=== PATIENT | male | born 1980 | race Caucasian/White ===

== ENCOUNTER → 2019-07-29 | Outpatient (REF) | payer OTHER | LOC: M LAB REF 17:12 | PROVIDERS: ATTEND Dermatology | DX: D22.5 Melanocytic nevi of trunk (principal) | CPT/HCPCS: 11102; 88305; G0463 ==

== ENCOUNTER → 2019-08-11 | Outpatient (CLI) | payer OTHER ==
--- NOTE | 2019-08-11 09:46 | REPVR ---
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 lymphoma TECHNIQUE: Imaging protocol: Multiplanar magnetic resonance images of the thoracic spine without and with intravenous contrast. Contrast material: PROHANCE; Contrast volume: 19 ml; Contrast route: IV; COMPARISON: No relevant prior studies available. FINDINGS: Vertebrae: There are no regions of abnormal enhancement. Spinal cord: There is minimal central and left subarticular herniation at T11-T12 with subtle deformity of adjacent anterior left cord surface on axial image 1:6. Discs/Spinal canal/Neural foramina: No significant disc disease. No significant spinal canal stenosis. Soft tissues: Posterior skin markers are seen at the T6 level. No soft tissue mass is identified. IMPRESSION: 1. Posterior skin markers are seen at the T6 level. No soft tissue mass is identified. 2. There are no regions of abnormal enhancement. 3. There is minimal central and left subarticular herniation at T11-T12 with subtle deformity of adjacent anterior left cord surface on axial image 1:6. Electronically signed by: Tomy Lizama On 08/11/2019 09:45:49 AM
== END ==
LOC: M PLARAD 07:03
PROVIDERS: ATTEND Dermatology
DX: D48.9 Neoplasm of uncertain behavior, unspecified (principal)

== ENCOUNTER → 2019-09-04 | Outpatient (REF) | payer OTHER | LOC: M LAB REF 17:06 | PROVIDERS: ATTEND Dermatology | DX: L90.5 Scar conditions and fibrosis of skin (principal) ==